=== PATIENT | female | born 1995 | race Caucasian/White ===

== ENCOUNTER 2020-01-09 14:31 | Outpatient (REF) | payer OTHER, SELFPAY ==
[2020-01-23 15:36] LABS: COVID-19 Test Negative (Negative)
[2020-02-19 09:45] LABS: SARS-COV-2 PCR UMBRL NOT DETECTED
== END 2020-01-09 14:32 | disposition home or self-care (01) ==
LOC: HO.EMPCOV 14:31
PROVIDERS: Visit Provider Internal Medicine
DX: Z20.828 Contact with and (suspected) exposure to other viral communicable diseases (principal)
CPT/HCPCS: 87635; C9803; U0003

== ENCOUNTER 2020-02-15 22:20 | Outpatient (REF) | payer OTHER, SELFPAY ==
[2020-02-15 23:00] LABS: COVID-19 Test Negative (Negative)
== END 2020-02-15 22:21 | disposition home or self-care (01) ==
LOC: HO.EMPCOV 22:20
PROVIDERS: Visit Provider Internal Medicine
DX: Z20.822 Contact with and (suspected) exposure to COVID-19 (principal)
CPT/HCPCS: 36415; 87635